=== PATIENT | female | born 1980 | race Caucasian/White ===

== ENCOUNTER 2017-09-18 15:20 | Emergency (ER) | payer OTHER, MEDICAID ==
[2017-09-18 15:30] VITALS: BP 121/64
--- NOTE | 2017-09-18 15:44 | ER Document Report ---
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 States initially she was able to bear weight but last night and today the pain has worsened. She has tried advil and aleve with no relief. Denies any bruising, swelling, warmth, erythema or abrasions. TRAVEL OUTSIDE OF THE [place] IN LAST 30 DAYS: No - Related Data Allergies/Adverse Reactions: amitriptyline Allergy (Verified 09/18/17 15:24) aripiprazole [From Abilify] Allergy (Verified 09/18/17 15:24) cyclobenzaprine [From Flexeril] Allergy (Verified 09/18/17 15:24) morphine Allergy (Verified 09/18/17 15:24) quetiapine [From Seroquel] Allergy (Verified 09/18/17 15:24) tramadol Allergy (Verified 09/18/17 15:24) Past Medical History - General Information source: Patient - Social History Smoking Status: Current Every Day Smoker Family History: Reviewed & Not Pertinent Review of Systems - Review of Systems Constitutional: See HPI EENT: No symptoms reported Cardiovascular: No symptoms reported Respiratory: No symptoms reported Gastrointestinal: No symptoms reported Genitourinary: No symptoms reported Female Genitourinary: No symptoms reported Musculoskeletal: See HPI Skin: No symptoms reported Hematologic/Lymphatic: No symptoms reported Neurological/Psychological: No symptoms reported Physical Exam - Vital signs Vitals: Temp Pulse Resp BP Pulse Ox 98.7 F 78 16 121/64 98 09/18/17 15:27 09/18/17 15:27 09/18/17 15:27 09/18/17 15:27 09/18/17 15:27 - Notes Notes: PHYSICAL EXAM: CONSTITUTIONAL: Alert and oriented, well-appearing and in no acute distress. HENT: Normocephalic, atraumatic. Trachea midline. Uvula midline. Moist mucous membranes. EYES: Pupils equal round and reactive to light, EOM intact. Sclera anicteric, conjunctiva are normal. No entrapment. NECK: supple without lymphadenopathy. No midline tenderness or paraspinous muscle spasms. No step-offs or deformities. ROM intact. Negative Kernig's and negative Brudzinski's. HEART: Regular rate and rhythm without murmurs. LUNGS: CTAB and equal. No wheezes, rales or rhonchi. BACK: FROM to passive/active. Strength 5+/5. No vertebral point tenderness, step -offs, or deformities. No other bony tenderness, erythema, swelling or ecchymosis. No paraspinous muscle spasms. EXTREMITIES: no bony tenderness to right tib/fib, ankle or knee. TTP to posterior calf muscle which is soft. No erythema, edema, ecchymosis or deformity. Normal range of motion, no pitting edema. No cyanosis. Cap Refill <3 seconds. Negative Shauna's sign. NEURO: Cranial nerves grossly intact. Normal sensory/motor exams. PSYCH: Normal mood, normal affect. SKIN: Warm and dry. Normal turgor. No rashes or lesions noted. Course - Re-evaluation Re-evalutation: 09/18/17 15:44 Patient seen and examined. VSS, no acute distress, well hydrated and well appearing. No edema or erythema or deformity. Low suspicion for cellulitis, underlying hematoma, or concern for DVT. No bony tenderness and do not feel imaging studies are warranted at this time. Will treat with benzo here for muscle spasms and send home with script for muscle relaxers. At this time, will discharge with return precautions and follow-up recommendations. Verbal discharge instructions given at the bedside and opportunity for questions given. Medication warnings reviewed. Patient is in agreement with this plan and has verbalized understanding of return precautions and the need for primary care follow-up in the next 24-72 hours. - Vital Signs Vital signs: Temp Pulse Resp BP Pulse Ox 98.7 F 78 16 121/64 98 09/18/17 15:27 09/18/17 15:27 09/18/17 15:27 09/18/17 15:27 09/18/17 15:27 Discharge - Discharge Clinical Impression: Muscle spasm of right calf, Muscle spasm Condition: Stable Disposition: HOME, SELF-CARE Additional Instructions: Muscle Strain You have strained a muscle -- torn the fibers within the muscle. This often occurs with strenuous exertion, or during an injury that suddenly stretches the muscle. The seriousness of a strain varies. Some strains heal within days, others cause problems for months. X-rays cannot show a muscle strain. X-rays are taken only if symptoms suggest that a fracture could be present. The usual treatment of a muscle strain is rest and ice packs. Sometimes, a sling, splint, or crutches may be necessary to rest the muscle. The muscle can be used again once pain subsides. Severe strains require a special exercise and stretching program to prevent permanent stiffness and disability. Your doctor will advise you if this will be necessary. Call the doctor immediately if pain or swelling becomes severe, or if numbness or discoloration develop. Muscle Relaxers Muscle relaxing medications are usually prescribed for acute muscle spasm or injury to the neck and back. They are often combined with antiinflammatory pain medication for increased relief. You may stop the muscle relaxer when the pain and stiffness have improved. Start the medication again if spasms recur. Muscle relaxers may cause drowsiness, especially with the first dose. Do not operate machinery or drive while under the effects of the medication. Most muscle relaxers last up to 24 hours. Do not combine the medication with alcohol. FOLLOW-UP CARE: If you have been referred to a physician for follow-up care, call the physician s office for an appointment as you were instructed or within the next two days. If you experience worsening or a significant change in your symptoms, notify the physician immediately or return to the Emergency Department at any time for re-evaluation. Prescriptions: Methocarbamol [Robaxin 500 mg Tablet] 500 mg PO TID #20 tablet Forms: Return to Work
[2017-09-18] MEDS ORDERED: DIAZEPAM 5 MG TABLET PO ONE (15:56)
== END 2017-09-18 16:18 | disposition home or self-care (01) ==
LOC: ER 15:20
DX: M62.831 Muscle spasm of calf (principal); M79.661 Pain in right lower leg; X58.XXXA Exposure to other specified factors, initial encounter; Y93.H3 Activity, building and construction; Y99.0 Civilian activity done for income or pay; F17.200 Nicotine dependence, unspecified, uncomplicated; Z88.8 Allergy status to other drugs, medicaments and biological substances; Z88.5 Allergy status to narcotic agent
CPT/HCPCS: 99283

== ENCOUNTER 2018-12-07 16:19 | Emergency (ER) | payer SELFPAY ==
[2018-12-07 19:37] VITALS: BP 166/66
[2018-12-07] MEDS ORDERED: KETOROLAC TROMETHAMINE INJ/PF 30 MG/1 ML SDV IM ONE (19:39)
--- NOTE | 2018-12-07 19:41 | ER Document Report ---
ED Medical Screen (RME) - General Chief Complaint: Nose Pain Stated Complaint: NOSE INJURY Time Seen by Provider: 12/07/18 19:39 Mode of Arrival: Ambulatory Information source: Patient Notes: 38-year-old female presented to ED for pain swelling and bruising to the face. 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 She states there is a board that she is supposed to hit her stillborn and it came back and hit her in the face. She states she did continue to work. 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 She states she smokes half pack a day and drinks occasionally. Patient is alert oriented respirations regular and unlabored. She does have pain swelling bruising to the nose and a right black eye. She has severe tenderness to the right orbital area. I have greeted and performed a rapid initial assessment of this patient. A comprehensive ED assessment and evaluation of the patient, analysis of test results and completion of medical decision making process will be conducted by an additional ED providers. Dictation of this chart was performed using voice recognition software; therefore, there may be some unintended grammatical errors. TRAVEL OUTSIDE OF THE [place] IN LAST 30 DAYS: No - Related Data Allergies/Adverse Reactions: amitriptyline Allergy (Verified 09/18/17 15:24) aripiprazole [From Abilify] Allergy (Verified 09/18/17 15:24) cyclobenzaprine [From Flexeril] Allergy (Verified 09/18/17 15:24) morphine Allergy (Verified 09/18/17 15:24) quetiapine [From Seroquel] Allergy (Verified 09/18/17 15:24) tramadol Allergy (Verified 09/18/17 15:24) Past Medical History - Social History Frequency of alcohol use: Occasional Renal/ Medical History: Denies: Hx Peritoneal Dialysis Past Surgical History: Reports: Hx Hysterectomy Physical Exam - Vital signs Vitals: Temp Pulse Resp BP Pulse Ox 98.2 F 75 18 120/82 98 12/07/18 17:07 12/07/18 17:07 12/07/18 17:07 12/07/18 17:07 12/07/18 17:07 Course - Vital Signs Vital signs: Temp Pulse Resp BP Pulse Ox 98.1 F 87 18 166/66 H 100 12/07/18 19:36 12/07/18 19:36 12/07/18 19:36 12/07/18 19:36 12/07/18 19:36
--- NOTE | 2018-12-07 20:28 | RADIOLOGY REPORT (SQ) ---
CT MAXILLOFACIAL WITHOUT IV CONTRAST HISTORY: Facial pain. COMPARISON: None. TECHNIQUE: CT scan of the facial bones was performed without IV contrast. This exam was performed according to our departmental dose-optimization program, which includes automated exposure control, adjustment of the mA and/or kV according to patient size and/or use of iterative reconstruction technique. FINDINGS: There is a possible nondisplaced fracture of the left nasal bone. Small retention cyst in the right maxillary sinus. No air-fluid levels are seen. The mastoid air cells are clear. No retrobulbar mass or hematoma is identified. IMPRESSION: Query nondisplaced left nasal bone fracture.
[2018-12-07] MEDS ORDERED: HYDROCODONE/ACETAMINOPHEN 5-325 MG (6 TAB/ER DISP) PO PRN (20:41)
[2018-12-07] MEDS ORDERED: OXYMETAZOLINE HCL 0.05% NASAL SPRAY 15 ML BOTTLE NASL ONE (20:41)
--- NOTE | 2018-12-07 20:45 | ER Document Report ---
ED General - General Chief Complaint: Nose Pain Stated Complaint: NOSE INJURY Time Seen by Provider: 12/07/18 19:39 Mode of Arrival: Ambulatory Information source: Patient Notes: 38-year-old female with no reported past medical history presents with complaint of nose pain. 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 Patient felt immediate pain and had a large amount of bleeding from the nose. Patient denies loss of consciousness. Currently denies any headache. TRAVEL OUTSIDE OF THE [place] IN LAST 30 DAYS: No - HPI Onset: Just prior to arrival Onset/Duration: Sudden Quality of pain: Achy, Throbbing Severity: Moderate Associated symptoms: denies: Chest pain, Earache, Headache, Nausea, Vomiting, Shortness of breath Exacerbated by: Denies Relieved by: Denies Similar symptoms previously: No Recently seen / treated by doctor: No - Related Data Allergies/Adverse Reactions: amitriptyline Allergy (Verified 09/18/17 15:24) aripiprazole [From Abilify] Allergy (Verified 09/18/17 15:24) cyclobenzaprine [From Flexeril] Allergy (Verified 09/18/17 15:24) morphine Allergy (Verified 09/18/17 15:24) quetiapine [From Seroquel] Allergy (Verified 09/18/17 15:24) tramadol Allergy (Verified 09/18/17 15:24) Past Medical History - General Information source: Patient - Social History Smoking Status: Current Every Day Smoker Cigarette use (# per day): Yes - 10 Frequency of alcohol use: Occasional Drug Abuse: None Lives with: Family Family History: Reviewed & Not Pertinent Patient has suicidal ideation: No Patient has homicidal ideation: No - Medical History Medical History: Negative Renal/ Medical History: Denies: Hx Peritoneal Dialysis Past Surgical History: Reports: Hx Hysterectomy Review of Systems - Review of Systems Notes: REVIEW OF SYSTEMS: CONSTITUTIONAL : Denies fever, chills, or sweats. Denies recent illness. Denies weight loss, recent hospitalizations. EENT: Denies visual changes, eye pain. Denies sore throat, oral lesions, difficulty swallowing. CARDIOVASCULAR: Denies chest pain. Denies palpitations. Denies lower extremity edema. RESPIRATORY: Denies cough. Denies shortness of breath, wheezing. GASTROINTESTINAL: Denies abdominal pain or distention. Denies nausea, vomiting, or diarrhea. Denies blood in vomitus, stools, or per rectum. Denies black, tarry stools. Denies constipation. GENITOURINARY: Denies difficulty urinating, painful urination, frequency, blood in urine, or vaginal discharge. MUSCULOSKELETAL: Denies back or neck pain or stiffness. Denies joint pain or swelling. SKIN: Denies rash, lesions or sores. HEMATOLOGIC : Denies easy bruising or bleeding. LYMPHATIC: Denies swollen glands. NEUROLOGICAL: Denies confusion or altered mental status. Denies loss of consc iousness. Denies dizziness or lightheadedness. Denies headache. Denies weakness or paralysis. Denies problems difficulty with ambulation, slurred speech. Denies sensory loss, numbness, or tingling. Denies seizures. PSYCHIATRIC: Denies anxiety or stress. Denies depression, suicidal ideation, or homicidal ideation. Denies visual or auditory hallucinations. Physical Exam - Vital signs Vitals: Temp Pulse Resp BP Pulse Ox 98.2 F 75 18 120/82 98 12/07/18 17:07 12/07/18 17:07 12/07/18 17:07 12/07/18 17:07 12/07/18 17:07 - Notes Notes: PHYSICAL EXAMINATION: GENERAL: Well-appearing, well-nourished and in no acute distress. HEAD: Atraumatic, normocephalic. EYES: Pupils equal round and reactive to light, extraocular movements intact, conjunctiva are normal. ENT: Swelling to the bridge of nose with mild ecchymosis. No septal hematoma. no active bleeding.. Moist mucous membranes. NECK: Normal range of motion, supple without lymphadenopathy LUNGS: Breath sounds clear to auscultation bilaterally and equal. No wheezes rales or rhonchi. HEART: Regular rate and rhythm without murmurs ABDOMEN: Soft, nontender, nondistended abdomen. No guarding, no rebound. No masses appreciated. Female : deferred Musculoskeletal: Normal range of motion, no pitting or edema. No cyanosis. NEUROLOGICAL: Cranial nerves grossly intact. Normal speech, normal gait. Normal sensory, motor exams PSYCH: Normal mood, normal affect. SKIN: Warm, Dry, normal turgor, no rashes or lesions noted. Course - Re-evaluation Re-evalutation: 12/07/18 20:[address] 12/07/18 19:39 IMPRESSION: Query nondisplaced left nasal bone fracture. Temp Pulse Resp BP Pulse Ox 98.1 F 87 18 166/66 H 100 12/07/18 19:36 12/07/18 19:36 12/07/18 19:36 12/07/18 19:36 12/07/18 19:36 38-year-old female presents after striking her face with a crowbar. Found to have a nondisplaced left nasal bone fracture. No associated septal hematoma, active bleeding, deformity to the nose. Vital signs reviewed and within normal limits except for mildly elevated blood pressure. Patient advised to blow her nose gently when required. She was given Afrin and advised to not use for longer than 3 to 4 days. Patient advised icing the area and using Tylenol as needed for pain. Patient was discharged home in stable condition. Patient was evaluated and treated as appropriate for the patient's presenting symptoms and complaint, with consideration of any critical or life threatening conditions that may be associated with their obtained history and exam as noted above. All results were discussed with patient. Patient provided the opportunity to ask questions, and express concerns. Patient was educated on treatments based on their presumed diagnosis as noted above. At this time we will discharge the patient with return precautions and follow-up recommendations. Verbal discharge instructions given a the bedside. Medication warnings reviewed. Patient is in agreement with this plan and has verbalized understanding of return precautions. After careful consideration I feel that that patient can be safely discharged from the emergency department, they were advised to followup with a primary care physician in 2-3 days. Dictation on this chart was performed using voice recognition software and may result in unintended grammatical, spelling, syntax or errors. - Vital Signs Vital signs: Temp Pulse Resp BP Pulse Ox 98.1 F 87 18 166/66 H 100 12/07/18 19:36 12/07/18 19:36 12/07/18 19:36 12/07/18 19:36 12/07/18 19:36 - Diagnostic Test Radiology reviewed: Image reviewed, Reports reviewed Discharge - Discharge Clinical Impression: Nasal bone fracture Qualifiers: Encounter type: initial encounter Fracture type: closed Qualified Code(s): S02.2XXA - Fracture of nasal bones, initial encounter for closed fracture Facial contusion Qualifiers: Encounter type: initial encounter Qualified Code(s): S00.83XA - Contusion of other part of head, initial encounter Condition: Good Disposition: HOME, SELF-CARE Instructions: Fracture of the Nose ([facility]) Additional Instructions: Please do not blow your nose forcefully. Ice your nose when possible. Use Afrin for nasal congestion but do not use for longer than 4 days. Follow up with your [id number] hours for further care or return to the ED IMMEDIATELY if symptoms worsen or you have any concerns. If you cannot afford to follow up with your primary care physician a list of low cost clinics have been provided at the end of your discharge papers as well. Most prescribed medications have multiple side effects. The safest thing to do is when filling your prescription speak to your pharmacist regarding possible interactions with your normal home medications and over the counter medications such as Ibuprofen, Tylenol, Benadryl. If you experience any symptoms that cause you discomfort or concern you should discontinue the medication immediately and return to the emergency room or call your primary care physician. Forms: Return to Work, Elevated Blood Pressure
== END 2018-12-07 19:40 | disposition home or self-care (01) ==
LOC: ER 16:19
DX: S02.2XXA Fracture of nasal bones, initial encounter for closed fracture (principal); W20.8XXA Other cause of strike by thrown, projected or falling object, initial encounter; Y93.H3 Activity, building and construction; Y99.0 Civilian activity done for income or pay; F17.210 Nicotine dependence, cigarettes, uncomplicated; I10 Essential (primary) hypertension; Z88.8 Allergy status to other drugs, medicaments and biological substances; Z88.5 Allergy status to narcotic agent
CPT/HCPCS: 99283; 96372; 70486; J1885; J3490

== ENCOUNTER 2019-09-12 23:29 | Emergency (ER) | payer SELFPAY ==
[2019-09-12 23:36] VITALS: BP 132/97
--- NOTE | 2019-09-12 23:42 | ER Document Report ---
HPI - HPI Time Seen by Provider: 09/12/19 23:39 Context: HPI: 39-year-old female presenting for a work note to return to work. States that 2 days ago she ate a salad that had jalapenos on and she is allergic to jalapenos. Patient had an episode of vomiting while at work and was sent home. States she has no abdominal pain fever nausea vomiting currently. No dysuria. No cough cold symptoms. She would like to go back to work. I have greeted and performed a rapid initial assessment of this patient. A comprehensive ED assessment and evaluation of the patient, analysis of test results and completion of the medical decision making process will be conducted by additional ED providers PHYSICAL EXAMINATION: Lung sounds are clear to auscultation, regular rate and rhythm, no abdominal pain on palpation, awake and alert, oriented x3. Moves all extremities without restriction. MDM: 39-year-old female requesting a work note to return to work, she is asymptomatic at this time believes that she had a reaction to jalapenos which she is allergic to. Will give patient a note to return to work - REPRODUCTIVE Reproductive: DENIES: : Past Medical History - Social History Smoking Status: Current Some Day Smoker Family History: Reviewed & Not Pertinent Renal/ Medical History: Denies: Hx Peritoneal Dialysis Past Surgical History: Reports: Hx Hysterectomy Vertical Provider Document - INFECTION CONTROL TRAVEL OUTSIDE OF THE [place] IN LAST 30 DAYS: No Course - Vital Signs Vital signs: Temp Pulse Resp BP Pulse Ox 98.7 F 93 16 132/97 H 96 09/12/19 23:36 09/12/19 23:36 09/12/19 23:36 09/12/19 23:36 09/12/19 23:36 Discharge - Discharge Clinical Impression: Well adult health check Condition: Stable Disposition: HOME, SELF-CARE Additional Instructions: Follow-up with your primary care provider for further evaluation and treatment as needed Forms: Return to Work Referrals: YOLANDA CURRY MD [ACTIVE STAFF] - Follow up as needed
== END 2019-09-12 23:43 | disposition home or self-care (01) ==
LOC: ER 23:29
DX: Z04.89 Encounter for examination and observation for other specified reasons (principal); F17.200 Nicotine dependence, unspecified, uncomplicated
CPT/HCPCS: 99281

== ENCOUNTER 2020-03-16 09:36 | Emergency (ER) | payer SELFPAY ==
[2020-03-16] MEDS ORDERED: NORMAL SALINE 1000 ML 1,000 ML IV ONE (10:03)
[2020-03-16] MEDS ORDERED: ONDANSETRON HCL INJ/PF 4 MG/2 ML SDV IV ONE (10:03)
[2020-03-16] MEDS ORDERED: KETOROLAC TROMETHAMINE INJ/PF 30 MG/1 ML SDV IV ONE (10:03)
--- NOTE | 2020-03-16 10:20 | ER Document Report ---
ED Respiratory Problem - General Chief Complaint: Shortness Of Breath Stated Complaint: SHORT OF BREATH,VOMITING,DIARRHEA Time Seen by Provider: 03/16/20 09:45 Notes: CHIEF COMPLAINT: Multiple complaints HPI: 39-year-old female presenting to the emergency department with multiple complaints. States 2 days ago she developed cough, sore throat, intermittent abdominal cramping with vomiting and diarrhea. Has not had a definitive fever but complains of severe myalgia. Patient does smoke. ROS: See HPI - all other systems were reviewed and are otherwise negative Constitutional: no fever Eyes: no drainage, no blurred vision ENT: no runny nose, no sore throat Cardiovascular: no chest pain Resp: no SOB, + cough GI: + vomiting, + diarrhea, no abdominal pain : no dysuria Integumentary: no rash Allergy: no hives Musculoskeletal: no extremity pain or swelling Neurological: no numbness/tingling, no weakness MEDICATIONS: I agree with the patient medications as charted by the RN. ALLERGIES: I agree with the allergies as charted by the RN. PAST MEDICAL HISTORY/PAST SURGICAL HISTORY: Reviewed and agree as charted by RN. SOCIAL HISTORY: Reviewed and agree as charted by RN. FAMILY HISTORY: No significant familial comorbid conditions directly related to patient complaint EXAM: Reviewed vital signs as charted by RN. CONSTITUTIONAL: Alert and oriented and responds appropriately to questions. Slightly ill l-appearing; well-nourished HEAD: Normocephalic; atraumatic EYES: PERRL; Conjunctivae clear, sclerae non-icteric ENT: normal nose; no rhinorrhea; moist mucous membranes; pharynx without lesions noted, no uvula edema or deviation, no tonsillar hypertrophy, phonation normal NECK: Supple without meningismus; non-tender; no cervical lymphadenopathy, no masses CARD: RRR; no murmurs, no clicks, no rubs, no gallops; symmetric distal pulses RESP: Normal chest excursion without splinting or tachypnea; breath sounds clear and equal bilaterally; no wheezes, no rhonchi, no rales, pulse oximetry 97% on room air not hypoxic ABD/GI: Normal bowel sounds; non-distended; soft, non-tender, no rebound, no guarding; no palpable organomegaly or masses. BACK: The back appears normal and is non-tender to palpation, there is no CVA tenderness EXT: Normal ROM in all joints; non-tender to palpation; no cyanosis, no effusions, no edema SKIN: Normal color for age and race; warm; dry; good turgor; no acute lesions noted NEURO: Moves all extremities equally; Motor and sensory function intact PSYCH: The patient's mood and manner are appropriate. Grooming and personal hygiene are appropriate. MDM: TRAVEL OUTSIDE OF THE [place] IN LAST 30 DAYS: No - Related Data Allergies/Adverse Reactions: amitriptyline Allergy (Verified 03/16/20 10:22) aripiprazole [From Abilify] Allergy (Verified 03/16/20 10:22) cyclobenzaprine [From Flexeril] Allergy (Verified 03/16/20 10:22) morphine Allergy (Verified 03/16/20 10:22) quetiapine [From Seroquel] Allergy (Verified 03/16/20 10:22) tramadol Allergy (Verified 03/16/20 10:22) Past Medical History - Social History Smoking Status: Current Every Day Smoker Family History: Reviewed & Not Pertinent Renal/ Medical History: Denies: Hx Peritoneal Dialysis Past Surgical History: Reports: Hx Hysterectomy Physical Exam - Vital signs Vitals: Temp Pulse BP Pulse Ox 98.9 F 78 115/74 95 03/16/20 09:57 03/16/20 09:57 03/16/20 09:57 03/16/20 09:57 Course - Re-evaluation Re-evalutation: 03/16/20 12:36 Patient's testing is all essentially negative. We will add a tox screen to ensure that her symptoms are not from drug use. Patient will be discharged home as a person under investigation for COVID-19 self quarantine at home pending results. Symptomatic treatment at home. - Vital Signs Vital signs: Temp Pulse Resp BP Pulse Ox 98.9 F 78 115/74 95 03/16/20 09:57 03/16/20 09:57 03/16/20 09:57 03/16/20 09:57 - Laboratory Result Diagrams: 03/16/20 10:30 03/16/20 10:30 Discharge - Discharge Clinical Impression: Nausea vomiting and diarrhea, Cough, Person under investigation for COVID-19 Condition: Stable Disposition: HOME, SELF-CARE Instructions: COVID-19 Guidance for Persons Under Investigation Additional Instructions: You are considered a person under investigation for COVID-19 at this time. Self quarantine at home pending your results which may take 2 to 5 days. You should hear from someone at the hospital about your results. Take Voltaren to help with body ache. Zofran to help with nausea vomiting. Hydrate well at home. Return for any worsening symptoms or concerns Prescriptions: Diclofenac Sodium [Voltaren 50 Mg Tablet.] 50 mg PO BID #20 tablet. Ondansetron [Zofran Odt 4 mg Tablet] 1 - 2 tab PO Q4H PRN #15 tab.rapdis PRN Reason: For Nausea/Vomiting Referrals: YOLANDA CURRY MD [ACTIVE STAFF] - Follow up as needed
[2020-03-16 10:51] LABS: ABSOLUTE EOSINOPHILS # (AUTO) 0.2 10^3/uL (0.0-0.6); ABSOLUTE LYMPHOCYTES (AUTO) 2.1 10^3/uL (0.5-4.7); ABSOLUTE MONOCYTES (AUTO) 0.7 10^3/uL (0.1-1.4); ABSOLUTE NEUT (AUTO) 6.5 10^3/uL (1.7-8.2); BASOPHILS % (AUTO) 0.4 % (0-2); EOSINOPHILS % (AUTO) 2.2 % (0-6); HEMATOCRIT 38.6 % (36.0-47.0); HEMOGLOBIN 13.3 g/dL (12.0-15.5); MEAN CORPUSCULAR HEMOGLOBIN 30.1 pg (27.0-33.4); MEAN CORPUSCULAR HGB CONC 34.6 g/dL (32.0-36.0); MEAN CORPUSCULAR VOLUME 87 fl (80-97); MONOCYTES % (AUTO) 6.9 % (3-13); PLATELET COUNT 264 10^3/uL (150-450); RED BLOOD COUNT 4.43 10^6/uL (3.72-5.28); RED CELL DISTRIBUTION WIDTH 13.6 % (11.5-14.0); SEGMENTED NEUTROPHILS % (AUTO) 68.5 % (42-78); TOTAL CELLS COUNTED % (AUTO) 100 %; WHITE BLOOD COUNT 9.5 10^3/uL (4.0-10.5)
[2020-03-16 11:26] LABS: ALKALINE PHOSPHATASE 68 U/L (38-126); ANION GAP 6 (5-19); ASPARTATE AMINO TRANSFERASE 20 U/L (14-36); BILIRUBIN,DIRECT 0.3 mg/dL (0.0-0.4); BILIRUBIN,TOTAL 0.3 mg/dL (0.2-1.3); BLOOD UREA NITROGEN 15 mg/dL (7-20); CALCIUM 9.4 mg/dL (8.4-10.2); CARBON DIOXIDE 28 mmol/L (22-30); CHLORIDE 104 mmol/L (98-107); GLUCOSE 99 mg/dL (75-110); POTASSIUM 4.5 mmol/L (3.6-5.0); TOTAL PROTEIN 7.1 g/dL (6.3-8.2)
--- NOTE | 2020-03-16 11:26 | RADIOLOGY REPORT (SQ) ---
EXAM DESCRIPTION: CHEST SINGLE VIEW IMAGES COMPLETED DATE/TIME: 03/16/2020 10:54 am REASON FOR STUDY: cough COMPARISON: None. EXAM PARAMETERS: NUMBER OF VIEWS: One view. TECHNIQUE: Single frontal radiographic view of the chest acquired. RADIATION DOSE: NA LIMITATIONS: None. FINDINGS: LUNGS AND PLEURA: No opacities, masses or pneumothorax. No pleural effusion. MEDIASTINUM AND HILAR STRUCTURES: No masses. Contour normal. HEART AND VASCULAR STRUCTURES: Heart normal in size. Normal vasculature. BONES: No acute findings. HARDWARE: None in the chest. OTHER: No other significant finding. IMPRESSION: NO ACUTE RADIOGRAPHIC FINDING IN THE CHEST. TECHNICAL DOCUMENTATION: JOB ID: [id number] 2010 [employer]- All Rights Reserved Reading location - IP/workstation name: [email or web address]
[2020-03-16 11:42] LABS: A TYPE INFLUENZA AG NEGATIVE (NEGATIVE); B INFLUENZA AG NEGATIVE (NEGATIVE)
[2020-03-16 12:06] LABS: APPEARANCE,URINE CLOUDY; BILIRUBIN,URINE NEGATIVE (NEGATIVE); COLOR,URINE YELLOW; GLUCOSE, URINE NEGATIVE (NEGATIVE); KETONES,URINE NEGATIVE (NEGATIVE); LEUKOCYTE ESTERASE,URINE NEGATIVE (NEGATIVE); NITRITE,URINE NEGATIVE (NEGATIVE); PROTEIN,URINE NEGATIVE (NEGATIVE); URINE SPECIFIC GRAVITY 1.006; UROBILINOGEN,URINE NEGATIVE mg/dL (<2.0)
[2020-03-16 12:54] VITALS: BP 120/77
[2020-03-16 13:20] LABS: URINE AMPHETAMINES SCREEN NEGATIVE; URINE BARBITURATES SCREEN NEGATIVE; URINE BENZODIAZEPINES SCREEN NEGATIVE; URINE COCAINE SCREEN NEGATIVE; URINE MARIJUANA (THC) SCREEN UNCONFIRMED POSITIVE; URINE METHADONE SCREEN NEGATIVE; URINE PHENCYCLIDINE SCREEN NEGATIVE
== END 2020-03-16 12:54 | disposition home or self-care (01) ==
LOC: ER 09:36
DX: R11.2 Nausea with vomiting, unspecified (principal); R19.7 Diarrhea, unspecified; R05 Cough; R06.02 Shortness of breath; J02.9 Acute pharyngitis, unspecified; R10.9 Unspecified abdominal pain; M79.10 Myalgia, unspecified site; Z88.8 Allergy status to other drugs, medicaments and biological substances; F17.200 Nicotine dependence, unspecified, uncomplicated; Z20.828 Contact with and (suspected) exposure to other viral communicable diseases
CPT/HCPCS: 99284; 96361; 96374; 96375; 36415; 87070; 87880; 83690; 84703; 85025; 87635; 80053; 81001; 80307; 87804; 71045; J1885; J2405; J7030; C9803